=== PATIENT | male | born 1955 | race Hispanic/Latino ===

== ENCOUNTER 2017-10-14 07:56 | Emergency (ER) | payer OTHER ==
--- NOTE | 2017-10-14 08:11 | EDPHYS ---
Physician Documentation [facility] Name: George Gold Age: 61 yrs Sex: Male : 1955 Arrival Date: 10/14/2017 Time: 07:59 Bed 20 Private MD: Unknown, Unknown ED Physician Duran Garza HPI: 10/14 08:11 This 61 yrs old Male presents to ER via Unassigned with complaints of Ear Pain.jr8 08:11 The patient presents with pain. The complaints affect the left ear. Onset: The jr8 symptoms/episode began/occurred gradually, 2 day(s) ago. Modifying factors: The symptoms are alleviated by nothing, the symptoms are aggravated by touching. Associated signs and symptoms: The patient has no apparent associated signs or symptoms. Severity of symptoms: At their worst the symptoms were moderate in the emergency department the symptoms are unchanged. The patient has experienced similar episodes in the past, a few times. The patient has not recently seen a physician. Has tympanostomy in left ear. Has infections occasionally. Stated that it is hurting and believes it is infected. Cannot get into ENT until October . Historical: - Allergies: 08:15 NKDA; iw - Home Meds: 08:15 amlodipine 10 mg tab once daily [Active]; gemfibrozil 600 mg Oral tab 1 tab 2 times per iw day [Active]; glipizide 5 mg Oral tr24 2 tabs once daily [Active]; lisinopril 20 mg Oral tab 1 tab once daily [Active]; metformin 500 mg Oral Tb24 1 tab 2 times per day [Active]; zolpidem 10 mg Oral tab 1 tab once daily [Active]; - PMHx: 08:15 CVA; Diabetes - NIDDM; Hypertension; iw - PSHx: 08:15 None; iw - Immunization history:: Adult Immunizations. - Social history:: Smoking status: unknown. - Ebola Screening: : Patient negative for fever greater than or equal to 101.5 degrees Fahrenheit, and additional compatible Ebola Virus Disease symptoms Patient denies exposure to infectious person Patient denies travel to an Ebola-affected area in the 21 days before illness onset No symptoms or risks identified at this time. ROS: 08:11 Eyes: Negative for injury, pain, redness, and discharge, Neck: Negative for injury, jr8 pain, and swelling, Cardiovascular: Negative for chest pain, palpitations, and edema, Respiratory: Negative for shortness of breath, cough, wheezing, and pleuritic chest pain, Abdomen/GI: Negative for abdominal pain, nausea, vomiting, diarrhea, and constipation, Back: Negative for injury and pain, MS/Extremity: Negative for injury and deformity, Skin: Negative for injury, rash, and discoloration, Neuro: Negative for headache, weakness, numbness, tingling, and seizure. 08:11 ENT: Positive for ear pain, Negative for drainage from ear(s), hearing loss, tinnitus, rhinorrhea, sinus congestion, sinus pain, sore throat, dental pain, difficulty swallowing, difficulty handling secretions, hoarseness. Exam: 08:11 Eyes: Pupils equal round and reactive to light, extra-ocular motions intact. Lids and jr8 lashes normal. Conjunctiva and sclera are non-icteric and not injected. Cornea within normal limits. Periorbital areas with no swelling, redness, or edema. Neck: Trachea midline, no thyromegaly or masses palpated, and no cervical lymphadenopathy. Supple, full range of motion without nuchal rigidity, or vertebral point tenderness. No Meningismus. Cardiovascular: Regular rate and rhythm with a normal S1 and S2. No gallops, murmurs, or rubs. Normal PMI, no JVD. No pulse deficits. Respiratory: Lungs have equal breath sounds bilaterally, clear to auscultation and percussion. No rales, rhonchi or wheezes noted. No increased work of breathing, no retractions or nasal flaring. Skin: Warm, dry with normal turgor. Normal color with no rashes, no lesions, and no evidence of cellulitis. MS/ Extremity: Pulses equal, no cyanosis. Neurovascular intact. Full, normal range of motion. Neuro: Awake and alert, GCS 15, oriented to person, place, time, and situation. Cranial nerves II-XII grossly intact. Motor strength 5/5 in all extremities. Sensory grossly intact. Cerebellar exam normal. Normal gait. 08:11 ENT: External ear(s): are unremarkable, Ear canal(s): are normal, TM's: bulging, on the left, erythema, that is moderate, on the left, loss of bony landmarks, on the left, PE tubes visualized. PE tubes patent, intact, draining in ear canal Nose: is normal, Mouth: is normal, Posterior pharynx: is normal. Vital Signs: 08:12 BP 170 / 99; Pulse 67; Resp 16; Temp 98.2; Pulse Ox 98% on R/A; Pain 8/10; iw MDM: 08:03 Patient medically screened. jr8 08:09 Data reviewed: vital signs, nurses notes, and as a result, I will discharge patient. jr8 Data interpreted: Pulse oximetry: on room air is 100 %. Interpretation: normal. Counseling: I had a detailed discussion with the patient and/or guardian regarding: the historical points, exam findings, and any diagnostic results supporting the discharge/admit diagnosis, the need for outpatient follow up, an ENT specialist, to return to the emergency department if symptoms worsen or persist or if there are any questions or concerns that arise at home. Administered Medications: 08:16 Drug: Cortisporin Drops 4 drops Route: Otic; Site: left ear; tw2 Disposition: 12:39 Co-signature as Attending Physician, Duran Garza MD. rn Disposition: 10/14/17 08:10 Discharged to Home. Impression: Acute suppurative otitis media. - Condition is Stable. - Discharge Instructions: Otitis Media, Adult. - Prescriptions for Cortisporin 3.5- 10,000-1 mg/mL-unit/mL-% Otic solution - instill 4 drop by OTIC route 4 times per day for 7 days; 1 bottle. Augmentin 875- 125 mg Oral Tablet - take 1 tablet by ORAL route every 12 hours for 10 days; 20 tablet. - Medication Reconciliation Form, Thank You Letter, Antibiotic Education, Prescription Opioid Use form. - Follow up: Anayeli Barbour MD; When: 1 week; Reason: Recheck today's complaints, Continuance of care, Re-evaluation by your physician. - Problem is new. - Symptoms have improved. Signatures: Radha Hyde RN RN Duran Thompson MD MD rn Roszak, Josh, PA PA jr8 Jacqueline Zuniga RN RN tw2 Corrections: (The following items were deleted from the chart) 08:22 08:10 10/14/2017 08:10 Discharged to Home. Impression: Acute suppurative otitis media. tw2 Condition is Stable. Forms are Medication Reconciliation Form, Thank You Letter, Antibiotic Education, Prescription Opioid Use. Follow up: Anayeli Barbour; When: 1 week; Reason: Recheck today's complaints, Continuance of care, Re-evaluation by your physician. Problem is new. Symptoms have improved. jr8
--- NOTE | 2017-10-14 08:11 | ER ---
Nurse's Notes [facility] Name: George Gold Age: 61 yrs Sex: Male : 1955 Arrival Date: 10/14/2017 Time: 07:59 Bed 20 Private MD: Unknown, Unknown Diagnosis: Acute suppurative otitis media Presentation: 10/14 08:10 Presenting complaint: Patient states: has tube in left ear, roche snot remember why it iw was placed, but has had multiple ear infections in past, last on antibiotics a year ago, has had pain in the ear for 2 weeks and last night he couldn't sleep. Transition of care: patient was not received from another setting of care. Onset of symptoms was September 30, 2017. Risk Assessment: Do you want to hurt yourself or someone else? Patient reports no desire to harm self or others. Initial Sepsis Screen: Does the patient meet any 2 criteria? No. Patient's initial sepsis screen is negative. Does the patient have a suspected source of infection? No. Patient's initial sepsis screen is negative. Care prior to arrival: None. 08:10 Method Of Arrival: Ambulatory iw 08:10 Acuity: KEHINDE 5 iw Historical: - Allergies: 08:15 NKDA; iw - Home Meds: 08:15 amlodipine 10 mg tab once daily [Active]; gemfibrozil 600 mg Oral tab 1 tab 2 times per iw day [Active]; glipizide 5 mg Oral tr24 2 tabs once daily [Active]; lisinopril 20 mg Oral tab 1 tab once daily [Active]; metformin 500 mg Oral Tb24 1 tab 2 times per day [Active]; zolpidem 10 mg Oral tab 1 tab once daily [Active]; - PMHx: 08:15 CVA; Diabetes - NIDDM; Hypertension; iw - PSHx: 08:15 None; iw - Immunization history:: Adult Immunizations. - Social history:: Smoking status: unknown. - Ebola Screening: : Patient negative for fever greater than or equal to 101.5 degrees Fahrenheit, and additional compatible Ebola Virus Disease symptoms Patient denies exposure to infectious person Patient denies travel to an Ebola-affected area in the 21 days before illness onset No symptoms or risks identified at this time. Screenin:09 Abuse screen: Denies threats or abuse. Nutritional screening: No deficits noted. tw2 Tuberculosis screening: No symptoms or risk factors identified. Fall Risk None identified. Assessment: 08:09 General: Appears in no apparent distress. well groomed, Behavior is calm, cooperative, tw2 appropriate for age. Pain:. Neuro: Level of Consciousness is awake, alert, obeys commands, Oriented to person, place, time, situation. Cardiovascular: Denies chest pain, shortness of breath, Capillary refill < 3 seconds Patient's skin is warm and dry. Respiratory: Airway is patent Respiratory effort is even, unlabored, Respiratory pattern is regular, symmetrical. GI: No signs and/or symptoms were reported involving the gastrointestinal system. : No signs and/or symptoms were reported regarding the genitourinary system. Derm: No signs and/or symptoms reported regarding the dermatologic system. Skin is intact, is healthy with good turgor, Skin temperature is warm. Musculoskeletal: Circulation, motion, and sensation intact. Range of motion: intact in all extremities. 08:21 Pain: Complains of pain in left ear. EENT: Reports pain in left ear. tw2 Vital Signs: 08:12 BP 170 / 99; Pulse 67; Resp 16; Temp 98.2; Pulse Ox 98% on R/A; Pain 8/10; iw ED Course: 07:59 Patient arrived in ED. mr 07:59 Unknown, Unknown is Private Physician. mr 08:03 Jose Weinberg PA is PHCP. jr8 08:03 Duran Garza MD is Attending Physician. jr8 08:04 Jacqueline Zuniga, DIANA is Primary Nurse. tw2 08:09 Bed in low position. Call light in reach. Pulse ox on. NIBP on. tw2 08:10 Anayeli Barbour MD is Referral Physician. jr8 08:12 Triage completed. iw 08:12 Arm band placed on. iw 08:22 No provider procedures requiring assistance completed. Patient did not have IV access tw2 during this emergency room visit. Administered Medications: 08:16 Drug: Cortisporin Drops 4 drops Route: Otic; Site: left ear; tw2 Outcome: 08:10 Discharge ordered by . jr8 08:22 Discharged to home ambulatory. tw2 08:22 Condition: stable 08:22 Discharge instructions given to patient, Instructed on discharge instructions, follow up and referral plans. medication usage, Demonstrated understanding of instructions, follow-up care, medications, Prescriptions given X 2. 08:22 Patient left the ED. tw2 Signatures: Bailey Sumner Irene RN RN Jose Weinberg PA PA jr8 Jacqueline Zuniga RN RN tw2
[2017-10-14] MEDS ORDERED: NEOMY/POLY/HC 1% OTIC DROPS ONE (08:17)
== END 2017-10-14 08:22 | disposition home or self-care (01) ==
LOC: ER 07:56
DX: H66.002 Acute suppurative otitis media without spontaneous rupture of ear drum, left ear (principal); I10 Essential (primary) hypertension; E11.9 Type 2 diabetes mellitus without complications
CPT/HCPCS: 99283

== ENCOUNTER 2018-01-21 16:38 | Emergency (ER) | payer OTHER ==
[2018-01-21] MEDS ORDERED: NA CHLORIDE 0.9% 500 ML ONE (17:39)
--- NOTE | 2018-01-21 17:43 | RAD REPORT ---
EXAM DESCRIPTION: RAD - Chest Single View - 01/21/2018 5:23 pm CLINICAL HISTORY: Hypertension, cough COMPARISON: April 2006 TECHNIQUE: AP portable chest image was obtained 1715 hour . FINDINGS: Is lung markings are accentuated by shallow inspiration. No peripheral mass or consolidati on. Heart and vasculature are normal. No measurable pleural effusion and no pneumothorax. No acute otto ny abnormality seen. No acute aortic findings suspected. IMPRESSION: No acute cardiopulmonary process.
[2018-01-21 17:53] LABS: Protime INR 1.17
[2018-01-21 17:54] LABS: Urine Blood NEGATIVE (NEG); Urine Glucose TRACE (NEG); Urine Protein NEGATIVE (NEG); Urine Specific Gravity >1.030 (1.005-1.030); Urine pH 5.5 (5.0-7.0)
[2018-01-21 17:55] LABS: Urine Bacteria <20 /HPF (NONE SEEN); Urine Culture Reflex Order NOT NEEDED; Urine RBC <5 /HPF (NONE SEEN)
[2018-01-21 17:57] LABS: Absolute Lymphocytes (CBC) 2.5 K/uL (0.7-4.9); Absolute Monocytes 0.7 K/uL (0.1-1.3); Absolute Neutrophil 6.8 K/uL (1.8-8.0); Basophils % 0.6 % (0-1.3); Eosinophils % 0.9 % (0-4.4); Hematocrit 44.8 % (39.6-49.0); Lymphocytes % 24.7 % (15.3-44.8); MCH 30.3 pg (27.0-35.0); MCV 87.5 fL (80-100); MPV 9.8 fL (7.6-11.3); Monocytes % 6.9 % (3.3-12.3); RBC Red Blood Cell Count 5.12 M/uL (4.33-5.43)
[2018-01-21 18:05] LABS: ALT/SGPT 28 U/L (12-78); AST/SGOT 17 U/L (15-37); Albumin 3.8 g/dL (3.4-5.0); Alkaline Phosphatase 80 U/L (45-117); BUN Blood Urea Nitrogen 15 mg/dL (7-18); Bicarbonate 27 mmol/L (21-32); Bilirubin Direct 0.2 mg/dL (0-0.2); Bilirubin Total 0.5 mg/dL (0.2-1.0); Glucose Level 205 mg/dL (74-106); Magnesium 1.9 mg/dL (1.8-2.4); NT PRO-BNP 79 pg/mL (<125); Potassium 3.7 mmol/L (3.5-5.1); Protein, Total 7.4 g/dL (6.4-8.2); Sodium Level 138 mmol/L (136-145)
--- NOTE | 2018-01-21 19:07 | ER ---
Nurse's Notes [facility] Name: George Gold Age: 62 yrs Sex: Male : 1955 Arrival Date: 01/21/2018 Time: 16:44 Bed 16 Private MD: Diagnosis: Person with feared health complaint in whom no diagnosis is made Presentation: 01/21 16:55 Presenting complaint: Patient states: i have been having blood in my urine for 3 days tw2 now, and my doctor couldn't get me in. Transition of care: patient was not received from another setting of care. Onset of symptoms was January 21, 2018. Risk Assessment: Do you want to hurt yourself or someone else? Patient reports no desire to harm self or others. Initial Sepsis Screen: Does the patient meet any 2 criteria? No. Patient's initial sepsis screen is negative. Does the patient have a suspected source of infection? No. Patient's initial sepsis screen is negative. Care prior to arrival: None. 16:55 Method Of Arrival: Ambulatory tw2 16:55 Acuity: KEHINDE 3 tw2 Triage Assessment: 19:15 General: Appears in no apparent distress. comfortable, Behavior is calm, cooperative, cc3 appropriate for age. Historical: - Allergies: 16:59 NKDA; tw2 - Home Meds: 16:59 amlodipine 10 mg tab once daily [Active]; gemfibrozil 600 mg Oral tab 1 tab 2 times per tw2 day [Active]; glipizide 5 mg Oral tr24 2 tabs once daily [Active]; lisinopril 20 mg oral tab [Active]; metformin 500 mg Oral Tb24 1 tab 2 times per day [Active]; zolpidem 10 mg Oral tab 1 tab once daily [Active]; - PMHx: 16:59 CVA; Diabetes - NIDDM; Hypertension; Hyperlipidemia; tw2 - PSHx: 16:59 None; tw2 - Immunization history:: Adult Immunizations. - Social history:: Smoking status: . - Ebola Screening: : Patient denies travel to an Ebola-affected area in the 21 days before illness onset. Screenin:57 Abuse screen: Denies threats or abuse. Nutritional screening: No deficits noted. tw2 Tuberculosis screening: Fall Risk None identified. Assessment: 17:01 General: Appears in no apparent distress. Pain: Complains of pain in pelvis. Neuro: tw2 Level of Consciousness is awake, alert, obeys commands, Oriented to person, place, time, situation. Cardiovascular: Heart tones S1 S2 Patient's skin is warm and dry. Respiratory: Airway is patent Respiratory effort is even, unlabored, Respiratory pattern is regular, symmetrical, Breath sounds are clear bilaterally. GI: No signs and/or symptoms were reported involving the gastrointestinal system. Abdomen is flat, Bowel sounds present X 4 quads. : Reports burning with urination, pain blood in urine. EENT: No signs and/or symptoms were reported regarding the EENT system. Derm: No signs and/or symptoms reported regarding the dermatologic system. Musculoskeletal: Range of motion: intact in all extremities. 18:24 Reassessment: Patient appears in no apparent distress at this time. No changes from tw2 previously documented assessment. Patient and/or family updated on plan of care and expected duration. Pain level reassessed. Patient is alert, oriented x 3, equal unlabored respirations, skin warm/dry/pink. 19:14 Reassessment: Patient appears in no apparent distress at this time. Patient and/or cc3 family updated on plan of care and expected duration. Pain level reassessed. Patient is alert, oriented x 3, equal unlabored respirations, skin warm/dry/pink. Received this male patient from morning shift DIANA Phillips as a case of blood in urine. With IV cannula gauge 22 at the left ACV with ongoing IV fluid of NS \T\ 75 mL/hr infusing well. 19:40 Reassessment: YOKASTA Stewart discharged the patient home, no prescription given. IV cannula cc3 removed and patient left ER vitally stable and ambulatory with his family. Vital Signs: 16:56 BP 142 / 122; Pulse 81; Resp 17; Temp 98.2(O); Pulse Ox 100% on R/A; Pain 6/10; tw2 17:16 BP 161 / 76; tw2 18:24 BP 161 / 81; Pulse 70; Resp 16; Pulse Ox 95% on R/A; tw2 19:14 BP 163 / 78; Pulse 64; Resp 18 S; Temp 98.0(O); Pulse Ox 100% on R/A; cc3 ED Course: 16:44 Patient arrived in ED. mr 16:55 Jacqueline Zuniga RN is Primary Nurse. tw2 16:56 Triage completed. tw2 16:56 Arm band placed on. tw2 16:57 [facility] Waldron [facility]C [facility]. snw 16:57 Victor M Carranza MD is Attending Physician. snw 16:57 Bed in low position. Call light in reach. Pulse ox on. NIBP on. tw2 17:20 First set of blood cultures drawn by me. jb1 17:24 XRAY Chest (1 view) In Process Unspecified. EDMS 17:33 Initial lab(s) drawn, by me, sent to lab. Inserted saline lock: 22 gauge in left jb1 forearm, using aseptic technique. Blood collected. 17:33 EKG done, by licensed psychiatric technician. reviewed by Pat MORALES. jb1 17:35 Second set of blood cultures drawn by me. jb1 18:09 Bladder scan completed. 38 mls. jb1 18:59 Report given to DIANA Rojo. tw2 19:05 Raul Barnes MD is Referral Physician. snw 19:40 No provider procedures requiring assistance completed. IV discontinued, intact, cc3 bleeding controlled, No redness/swelling at site. Pressure dressing applied. Administered Medications: 17:30 Drug: NS 0.9% 1000 ml Route: IV; Rate: 75 ml/hr; Site: left antecubital; tw2 19:40 Follow up: Response: No adverse reaction; Patient discharged home cc3 Intake: Outcome: 19:07 Discharge ordered by . snw 19:40 Discharged to home ambulatory, with family. cc3 19:40 Condition: stable 19:40 Discharge instructions given to patient, family, Instructed on discharge instructions, follow up and referral plans. Demonstrated understanding of instructions, follow-up care. 19:47 Patient left the ED. cc3 Signatures: Dispatcher [employer] EDMS BrownEnio pickering jb1 Pat Waldron FNP-C FNP-Csnw Eloisa Sumner Jacqueline Stevenson RN RN tw2 Alia Wick cc3 Corrections: (The following items were deleted from the chart) 01/22 02:48 01/21 19:40 Reassessment: YOKASTA Stewart discharged the patient home, no prescription given. cc3 IV cannula removed and patient left ER vitally stable and ambulatory. cc3
--- NOTE | 2018-01-21 19:08 | EDPHYS ---
Physician Documentation [facility] Name: George Gold Age: 62 yrs Sex: Male : 1955 Arrival Date: 01/21/2018 Time: 16:44 Bed 16 Private MD: ED Physician Victor M Carranza HPI: 01/21 18:32 This 62 yrs old Male presents to ER via Ambulatory with complaints of blood in snw urine. 18:32 The patient presents with urinary symptoms, hematuria. Onset: The symptoms/episode snw began/occurred suddenly. Modifying factors: The symptoms are alleviated by nothing. Associated signs and symptoms: Pertinent positives: hematuria, Pertinent negatives: abdominal pain, vomiting. Severity of symptoms: At their worst the symptoms were moderate. The patient has not experienced similar symptoms in the past. It is unknown whether or not the patient has recently seen a physician. Historical: - Allergies: 16:59 NKDA; tw2 - Home Meds: 16:59 amlodipine 10 mg tab once daily [Active]; gemfibrozil 600 mg Oral tab 1 tab 2 times per tw2 day [Active]; glipizide 5 mg Oral tr24 2 tabs once daily [Active]; lisinopril 20 mg oral tab [Active]; metformin 500 mg Oral Tb24 1 tab 2 times per day [Active]; zolpidem 10 mg Oral tab 1 tab once daily [Active]; - PMHx: 16:59 CVA; Diabetes - NIDDM; Hypertension; Hyperlipidemia; tw2 - PSHx: 16:59 None; tw2 - Immunization history:: Adult Immunizations. - Social history:: Smoking status: . - Ebola Screening: : Patient denies travel to an Ebola-affected area in the 21 days before illness onset. ROS: 18:31 Constitutional: Negative for fever, chills, and weight loss, Eyes: Negative for injury, snw pain, redness, and discharge, ENT: Negative for injury, pain, and discharge, Neck: Negative for injury, pain, and swelling, Cardiovascular: Negative for chest pain, palpitations, and edema, Respiratory: Negative for shortness of breath, cough, wheezing, and pleuritic chest pain, Abdomen/GI: Negative for abdominal pain, nausea, vomiting, diarrhea, and constipation, Back: Negative for injury and pain, MS/Extremity: Negative for injury and deformity, Skin: Negative for injury, rash, and discoloration, Neuro: Negative for headache, weakness, numbness, tingling, and seizure. 18:31 : Positive for hematuria. Exam: 18:31 Constitutional: This is a well developed, well nourished patient who is awake, alert, snw and in no acute distress. Head/Face: Normocephalic, atraumatic. Eyes: Pupils equal round and reactive to light, extra-ocular motions intact. Lids and lashes normal. Conjunctiva and sclera are non-icteric and not injected. Cornea within normal limits. Periorbital areas with no swelling, redness, or edema. ENT: Nares patent. No nasal discharge, no septal abnormalities noted. Tympanic membranes are normal and external auditory canals are clear. Oropharynx with no redness, swelling, or masses, exudates, or evidence of obstruction, uvula midline. Mucous membranes moist. Neck: Trachea midline, no thyromegaly or masses palpated, and no cervical lymphadenopathy. Supple, full range of motion without nuchal rigidity, or vertebral point tenderness. No Meningismus. Chest/axilla: Normal chest wall appearance and motion. Nontender with no deformity. No lesions are appreciated. Cardiovascular: Regular rate and rhythm with a normal S1 and S2. No gallops, murmurs, or rubs. Normal PMI, no JVD. No pulse deficits. Respiratory: Lungs have equal breath sounds bilaterally, clear to auscultation and percussion. No rales, rhonchi or wheezes noted. No increased work of breathing, no retractions or nasal flaring. Abdomen/GI: Soft, non-tender, with normal bowel sounds. No distension or tympany. No guarding or rebound. No evidence of tenderness throughout. Back: No spinal tenderness. No costovertebral tenderness. Full range of motion. Skin: Warm, dry with normal turgor. Normal color with no rashes, no lesions, and no evidence of cellulitis. MS/ Extremity: Pulses equal, no cyanosis. Neurovascular intact. Full, normal range of motion. Neuro: Awake and alert, GCS 15, oriented to person, place, time, and situation. Cranial nerves II-XII grossly intact. Motor strength 5/5 in all extremities. Sensory grossly intact. Cerebellar exam normal. Normal gait. Psych: Awake, alert, with orientation to person, place and time. Behavior, mood, and affect are within normal limits. Vital Signs: 16:56 BP 142 / 122; Pulse 81; Resp 17; Temp 98.2(O); Pulse Ox 100% on R/A; Pain 6/10; tw2 17:16 BP 161 / 76; tw2 18:24 BP 161 / 81; Pulse 70; Resp 16; Pulse Ox 95% on R/A; tw2 19:14 BP 163 / 78; Pulse 64; Resp 18 S; Temp 98.0(O); Pulse Ox 100% on R/A; cc3 MDM: 16:57 Patient medically screened. snw 19:10 Data reviewed: vital signs, nurses notes. Data interpreted: Pulse oximetry: on room air snw is 95 %. Interpretation: acceptable. Counseling: I had a detailed discussion with the patient and/or guardian regarding: the historical points, exam findings, and any diagnostic results supporting the discharge/admit diagnosis, the presence of at least one elevated blood pressure reading (>120/80) during this emergency department visit, lab results, radiology results, the need for outpatient follow up, to return to the emergency department if symptoms worsen or persist or if there are any questions or concerns that arise at home. Special discussion: Based on the history and exam findings, there is no indication for further emergent testing or inpatient evaluation. I discussed with the patient/guardian the need to see the primary care provider for further evaluation of the symptoms. I discussed with the patient/guardian the need to see the urologist for further evaluation of the symptoms. 01/21 16:59 Order name: Basic Metabolic Panel [facility] 01/21 16:59 Order name: CBC with Diff snw 01/21 16:59 Order name: LFT's snw 01/21 16:59 Order name: Magnesium snw 01/21 16:59 Order name: NT PRO-BNP snw 01/21 16:59 Order name: PT-INR; Complete Time: 18:09 snw 01/21 16:59 Order name: Blood Culture Adult (2) [facility] 01/21 16:59 Order name: Urine Culture [facility] 01/21 16:59 Order name: Urine Microscopic Only; Complete Time: 18:09 snw 01/21 17:00 Order name: Basic Metabolic Panel; Complete Time: 18:09 EDMS 01/21 17:00 Order name: CBC with Automated Diff; Complete Time: 18:09 EDMS 01/21 17:00 Order name: Liver (Hepatic) Function; Complete Time: 18:09 EDMS 01/21 17:00 Order name: Magnesium; Complete Time: 18:09 EDMS 01/21 17:00 Order name: NT PRO-BNP; Complete Time: 18:09 EDMS 01/21 16:59 Order name: XRAY Chest (1 view); Complete Time: 17:47 snw 01/21 16:59 Order name: Cardiac monitoring; Complete Time: 17:15 snw 01/21 16:59 Order name: IV Saline Lock; Complete Time: 17:34 snw 01/21 16:59 Order name: Labs collected and sent; Complete Time: 17:34 snw 01/21 16:59 Order name: O2 Per Protocol; Complete Time: 17:16 snw 01/21 16:59 Order name: O2 Sat Monitoring; Complete Time: 17:16 snw 01/21 16:59 Order name: Bladder Scanner; Complete Time: 18:10 snw 01/21 17:20 Order name: Urine Dipstick--Ancillary (enter results); Complete Time: 18:09 ms 01/21 17:42 Order name: EKG Electrocardiogram EDMS Administered Medications: 17:30 Drug: NS 0.9% 1000 ml Route: IV; Rate: 75 ml/hr; Site: left antecubital; tw2 19:40 Follow up: Response: No adverse reaction; Patient discharged home cc3 Disposition: 01/22 07:44 Co-signature as Attending Physician, Victor M Carranza MD I agree with the assessment and kdr plan of care. Disposition: 01/21/18 19:07 Discharged to Home. Impression: Person with feared health complaint in whom no diagnosis is made. - Condition is Stable. - Discharge Instructions: Hematuria, Adult, Hypertension, Managing Your Hypertension. - Medication Reconciliation Form, Thank You Letter, Antibiotic Education, Prescription Opioid Use form. - Follow up: Private Physician; When: 2 - 3 days; Reason: Recheck today's complaints, Continuance of care, Re-evaluation by your physician. Follow up: Raul Barnes MD; When: 1 week; Reason: Recheck today's complaints, Continuance of care, Re-evaluation by your physician. Signatures: Dispatcher [employer] Victor M Guardado MD MD kdr Pat Waldron, TAX CONSULTANT-C TAX CONSULTANT-Jovannyw Jacqueline Zuniga RN RN tw2 Alia Wick cc3 Corrections: (The following items were deleted from the chart) 01/21 19:47 19:07 01/21/2018 19:07 Discharged to Home. Impression: Person with feared health cc3 complaint in whom no diagnosis is made. Condition is Stable. Forms are Medication Reconciliation Form, Thank You Letter, Antibiotic Education, Prescription Opioid Use. Follow up: Private Physician; When: 2 - 3 days; Reason: Recheck today's complaints, Continuance of care, Re-evaluation by your physician. Follow up: Raul Barnes; When: 1 week; Reason: Recheck today's complaints, Continuance of care, Re-evaluation by your physician. snw
--- NOTE | 2018-01-22 07:19 | EKG ---
Test Date: 2018-01-21 Test Time: 17:33:02 [employer]: JUNITO MEASUREMENT RESULTS: Intervals: Rate: 78 [place]: 144 QRSD: 92 QT: 400 QTc: 456 [place]: P: 54 [place]: 144 QRS: 23 T: 83 INTERPRETIVE STATEMENTS: Normal sinus rhythm Normal ECG Compared to ECG 09/30/2015 14:32:18 No significant changes Electronically Signed On 01-22-18 07:18:24 SECURITY COMPLIANCE ENGINEER by Armen Currie
== END 2018-01-21 19:47 | disposition home or self-care (01) ==
LOC: ER 16:38
DX: Z71.1 Person with feared health complaint in whom no diagnosis is made (principal); I10 Essential (primary) hypertension; E11.9 Type 2 diabetes mellitus without complications; E78.5 Hyperlipidemia, unspecified
CPT/HCPCS: 36415; 71045; 80048; 80076; 81003; 81015; 83735; 83880; 85025; 85610; 87040; 87086; 87088; 93005; 99284

== ENCOUNTER 2021-09-29 19:56 | Emergency (ER) | payer OTHER ==
--- OUTSIDE RECORDS SUMMARY | 2021-09-29 19:59 | XMS REPORT | Continuity of Care Document ---
:1955 Author Organization [facility] t Address [facility] [place] [address] [place] [id number] Care Team Providers Name Role Phone Miller_S_AH Attending Clinician Unavailable Ailyn-Mbayo_A_AH Attending Clinician Unavailable Miller_S_AH Admitting Clinician Unavailable Ailyn-Mbayo_A_AH Admitting Clinician Unavailable Payers Payer Name Policy Type Policy Number Effective Date Expiration Date S ai [facility] - [id number] 2019 [employer] 00:00:00 (MEDICARE REPLACEMENT/ADVANT AGE - HMO) Problems This patient has no known problems. Allergies, Adverse Reactions, Alerts This patient has no known allergies or adverse reactions. Medications This patient has no known medications. Procedures This patient has no known procedures. Encounters Start End Encounter Admission Attending Care Care Encounter Source Date/Time Date/Time Type Type Clinicians Facility Department ID 2020-08-14 2020-08-14 Outpatient Miller_S_AH VFP VFP [id number] [facility] 04:11:00 04:11:00 [id number] Family Practic e 2019-05-05 2019-05-05 Outpatient Ailyn-Mbayo VFP VFP [id number] [facility] 05:59:00 05:59:00 _A_AH [id number] Family Practic e 2019-05-05 2019-05-05 Outpatient Ailyn-Mbayo VFP VFP [id number] [facility] 05:59:00 05:59:00 _A_AH [id number] Family Practic e 2019-05-05 2019-05-05 Outpatient Ailyn-Mbayo VFP VFP [id number] [facility] 05:59:00 05:59:00 _A_AH [id number] Family Practic e 2019-04-13 2019-04-13 Outpatient Ailyn-Mbayo VFP VFP [id number] [facility] 07:14:00 07:14:00 _A_ [id number] Family Practic e 2018-10-28 2018-10-28 Outpatient [facility] [id number] [facility] 06:35:00 06:35:00 Results This patient has no known results.
[2021-09-29] MEDS ORDERED: PEN G BENZ LA 1.2MU/2ML SYRINGE IM ONE (20:58)
[2021-09-29] MEDS ORDERED: HYDROCODONE/APAP 10/325 TAB ONE (22:01)
--- NOTE | 2021-09-29 22:07 | EDPHYS ---
Physician Documentation [facility] Name: George Gold Age: 65 yrs Sex: Male : 1955 Arrival Date: 09/29/2021 Time: 20:02 Bed 8 Private MD: ED Physician Renzo Lea HPI: 09/29 20:49 This 65 yrs old Male presents to ER via Ambulatory with complaints of snw Toothache, Jaw Pain. 20:49 The patient presents with pain, swelling. The problem is located in the left mandible. snw Onset: The symptoms/episode began/occurred suddenly, 2 day(s) ago, and became persistent. Duration: The symptoms are continuous. Associated signs and symptoms: Pertinent positives: chills, pain, swelling. Severity of symptoms: At their worst the symptoms were moderate. It is unknown whether or not the patient has had similar symptoms in the past. The patient has not recently seen a physician. has not checked blood sugar. Historical: - Allergies: 20:30 NKDA; kl - Home Meds: 20:30 amlodipine 10 mg tab once daily [Active]; gemfibrozil 600 mg Oral tab 1 tab 2 times per kl day [Active]; glipizide 5 mg Oral tr24 2 tabs once daily [Active]; lisinopril 20 mg Oral tab [Active]; metformin 500 mg Oral Tb24 1 tab 2 times per day [Active]; zolpidem 10 mg Oral tab 1 tab once daily [Active]; - PMHx: 20:30 CVA; Diabetes - NIDDM; Hyperlipidemia; Hypertension; kl - PSHx: 20:30 None; kl - Immunization history:: Adult Immunizations up to date. - Social history:: Smoking status: Patient reports the use of cigarette tobacco products, smokes one-half pack cigarettes per day. ROS: 20:47 Eyes: Negative for injury, pain, redness, and discharge. snw 20:47 Neck: Negative for injury, pain, and swelling, Cardiovascular: Negative for chest pain, palpitations, and edema. 20:47 Abdomen/GI: Negative for abdominal pain, nausea, vomiting, diarrhea, and constipation, Back: Negative for injury and pain, : Negative for injury, bleeding, discharge, and swelling, MS/Extremity: Negative for injury and deformity, Skin: Negative for injury, rash, and discoloration, Neuro: Negative for headache, weakness, numbness, tingling, and seizure, Psych: Negative for depression, anxiety, suicide ideation, homicidal ideation, and hallucinations. 20:47 Constitutional: Positive for body aches, chills, malaise. 20:47 ENT: Positive for drainage from ear(s), nasal discharge, Teeth pain 20:47 Respiratory: Positive for cough. Exam: 20:46 Head/Face: Normocephalic, atraumatic. Eyes: Pupils equal round and reactive to light, snw extra-ocular motions intact. Lids and lashes normal. Conjunctiva and sclera are non-icteric and not injected. Cornea within normal limits. Periorbital areas with no swelling, redness, or edema. 20:46 Neck: Trachea midline, no thyromegaly or masses palpated, and no cervical lymphadenopathy. Supple, full range of motion without nuchal rigidity, or vertebral point tenderness. No Meningismus. Chest/axilla: Normal chest wall appearance and motion. Nontender with no deformity. No lesions are appreciated. Cardiovascular: Regular rate and rhythm with a normal S1 and S2. No gallops, or rubs. + murmur. Normal PMI, no JVD. No pulse deficits. Respiratory: Lungs have equal breath sounds bilaterally, clear to auscultation and percussion. No rales, rhonchi or wheezes noted. No increased work of breathing, no retractions or nasal flaring. Abdomen/GI: Soft, non-tender, with normal bowel sounds. No distension or tympany. No guarding or rebound. No evidence of tenderness throughout. Back: No spinal tenderness. No costovertebral tenderness. Full range of motion. Skin: Warm, dry with normal turgor. Normal color with no rashes, no lesions, and no evidence of cellulitis. MS/ Extremity: Pulses equal, no cyanosis. Neurovascular intact. Full, normal range of motion. Neuro: Awake and alert, GCS 15, oriented to person, place, time, and situation. Cranial nerves II-XII grossly intact. Motor strength 5/5 in all extremities. Sensory grossly intact. Cerebellar exam normal. Normal gait. Psych: Awake, alert, with orientation to person, place and time. Behavior, mood, and affect are within normal limits. 20:46 Constitutional: The patient appears alert, awake, frail. 20:46 ENT: Nose: Nasal mucosa: edematous, Dental exam: dental caries, that is moderate, diffusely, gum swelling, that is moderate, specifically in the lower left first molar (#19). Vital Signs: 20:27 BP 178 / 73; Pulse 72; Resp 16; Temp 97.7(TE); Pulse Ox 97% ; Weight 67.13 kg (R); kl Height 5 ft. 3 in. (160.02 cm); Pain 7/10; 21:46 BP 169 / 86; Pulse 65; Resp 17; Pulse Ox 99% on R/A; ll3 20:27 Body Mass Index 26.22 (67.13 kg, 160.02 cm) kl MDM: 20:40 Patient medically screened. snw 20:48 Data reviewed: vital signs, nurses notes. Data interpreted: Pulse oximetry: on room air snw is 97 %. Interpretation: normal. Counseling: I had a detailed discussion with the patient and/or guardian regarding: the historical points, exam findings, and any diagnostic results supporting the discharge/admit diagnosis, the presence of at least one elevated blood pressure reading (>120/80) during this emergency department visit, lab results, the need for outpatient follow up, for definitive care. ED course: sees Dr. Rausch. 22:03 Response to treatment: the patient's symptoms have mildly improved after treatment. snw Special discussion: I discussed in detail with the patient the higher chance of wound infection based on his presenting history. Based on the history and exam findings, there is no indication for further emergent testing or inpatient evaluation. I discussed with the patient/guardian the need to see a dentist for further evaluation of the symptoms. I discussed with the patient/guardian the need to see the primary care provider for further evaluation of the symptoms. 09/29 20:46 Order name: SARS-COV-2 RT PCR (Document "Date of Onset" if Symptomatic); Complete Time: snw 22:02 09/29 21:15 Order name: Glucose, Ancillary Testing; Complete Time: 21:33 EDMS 09/29 20:46 Order name: FSBS; Complete Time: 21:04 snw Administered Medications: 20:59 Drug: Bicillin L-A (penicillin G Benzathine) 1.2 million units Route: IM; Site: right kl gluteus; 21:47 Follow up: Response: No adverse reaction 21:57 Drug: [place] (HYDROcodone-acetaminophen) 10 mg-325 mg 1 tabs Route: PO; ll3 22:22 Follow up: Response: No adverse reaction kl Point of Care Testing: Blood Glucose: 21:05 Blood Glucose: 226 mg/dL; Ranges: Critical Glucose Levels:Adult <50 mg/dl or >400 mg/dl <40 mg/dl or >180 mg/dl Disposition: 09/30 07:18 Co-signature as Attending Physician, Renzo Lea MD. [email or web address] Disposition Summary: 09/29/21 22:04 Discharge Ordered Location: Home snw Condition: Stable snw Diagnosis - Dental caries, unspecified snw Followup: snw - With: Private Physician - When: Tomorrow - Reason: Recheck today's complaints, Continuance of care, Re-evaluation by your physician Discharge Instructions: - Discharge Summary Sheet snw - Dental Caries, Adult snw - Dental Pain snw Forms: - Medication Reconciliation Form snw - Thank You Letter snw - Antibiotic Education snw - Prescription Opioid Use snw Prescriptions: - chlorhexidine gluconate 0.12 % Mucous Membrane mouthwash - place 15 milliliter by MUCOUS MEMBRANE route 2 times per day after brushing snw teeth, swish in mouth for 30 seconds then spit out; 480 milliliter; Refills: 0, Product Selection Permitted - Tylenol-Codeine #3 300 mg-30 mg Oral - take 1 tablet by ORAL route every 6-8 hours; 14 tablet; Refills: 0, Product snw Selection Permitted Signatures: Dispatcher [employer] Mica Sy, RN RN Pat Og, DEENA-C WELLNESS DIRECTOR-Jovannyw Renzo Lea MD MD [id number] Chin Capellan RN RN 3
--- NOTE | 2021-09-29 22:07 | ER ---
Nurse's Notes [facility] Name: George Gold Age: 65 yrs Sex: Male : 1955 Arrival Date: 09/29/2021 Time: 20:02 Bed 8 Private MD: Diagnosis: Dental caries, unspecified Presentation: 09/29 20:27 Chief complaint: Patient states: left jaw pain since thursday. Coronavirus screen: Vaccine status: Patient reports receiving the 2nd dose of the covid vaccine. Ebola Screen: Patient negative for fever greater than or equal to 101.5 degrees Fahrenheit, and additional compatible Ebola Virus Disease symptoms. Initial Sepsis Screen: Does the patient meet any 2 criteria? No. Patient's initial sepsis screen is negative. Does the patient have a suspected source of infection? No. Patient's initial sepsis screen is negative. Risk Assessment: Do you want to hurt yourself or someone else? Patient reports no desire to harm self or others. Onset of symptoms was September 27, 2021. 20:27 Method Of Arrival: Ambulatory 20:27 Acuity: KEHINDE 3 Triage Assessment: 20:31 General: Appears uncomfortable, well developed, well nourished, Behavior is calm, kl cooperative. Pain: Complains of pain in left jaw, left cheek and left mandible Pain radiates to left ear Pain currently is 7 out of 10 on a pain scale. EENT: slight swelling to left jaw. Reports pain. Neuro: No deficits noted. Montes Agitation-Sedation Scale (RASS): 0 - Alert and Calm. Cardiovascular: No deficits noted. Heart tones S1 S2. Respiratory: No deficits noted. Airway is patent Trachea midline Respiratory effort is even, unlabored, Breath sounds are clear bilaterally. GI: No deficits noted. No signs and/or symptoms were reported involving the gastrointestinal system. : No deficits noted. No signs and/or symptoms were reported regarding the genitourinary system. Derm: No deficits noted. No signs and/or symptoms reported regarding the dermatologic system. Musculoskeletal: No deficits noted. Historical: - Allergies: 20:30 NKDA; kl - Home Meds: 20:30 amlodipine 10 mg tab once daily [Active]; gemfibrozil 600 mg Oral tab 1 tab 2 times per kl day [Active]; glipizide 5 mg Oral tr24 2 tabs once daily [Active]; lisinopril 20 mg Oral tab [Active]; metformin 500 mg Oral Tb24 1 tab 2 times per day [Active]; zolpidem 10 mg Oral tab 1 tab once daily [Active]; - PMHx: 20:30 CVA; Diabetes - NIDDM; Hyperlipidemia; Hypertension; kl - PSHx: 20:30 None; kl - Immunization history:: Adult Immunizations up to date. - Social history:: Smoking status: Patient reports the use of cigarette tobacco products, smokes one-half pack cigarettes per day. Screenin:33 Abuse screen: Denies threats or abuse. Nutritional screening: No deficits noted. kl Tuberculosis screening: No symptoms or risk factors identified. Fall Risk None identified. Assessment: 21:46 Reassessment: No changes from previously documented assessment. Patient and/or family ll3 updated on plan of care and expected duration. Pain level reassessed. Patient is alert, oriented x 3, equal unlabored respirations, skin warm/dry/pink. Vital Signs: 20:27 BP 178 / 73; Pulse 72; Resp 16; Temp 97.7(TE); Pulse Ox 97% ; Weight 67.13 kg (R); kl Height 5 ft. 3 in. (160.02 cm); Pain 7/10; 21:46 BP 169 / 86; Pulse 65; Resp 17; Pulse Ox 99% on R/A; ll3 20:27 Body Mass Index 26.22 (67.13 kg, 160.02 cm) ED Course: 20:02 Patient arrived in ED. bp1 20:27 Pat Lewis FNP-C is PHCP. snw 20:27 Renzo Lea MD is Attending Physician. snw 20:30 Triage completed. kl 21:00 SARS-COV-2 RT PCR (Document "Date of Onset" if Symptomatic) Sent. kl 21:48 No apparent distress. Resting quietly. kl 21:56 Chin Capellan RN is Primary Nurse. ll3 22:21 No provider procedures requiring assistance completed. Patient did not have IV access kl during this emergency room visit. 22:22 Arm band placed on right wrist. kl 22:22 Patient has correct armband on for positive identification. kl Administered Medications: 20:59 Drug: Bicillin L-A (penicillin G Benzathine) 1.2 million units Route: IM; Site: right kl gluteus; 21:47 Follow up: Response: No adverse reaction 21:57 Drug: [place] (HYDROcodone-acetaminophen) 10 mg-325 mg 1 tabs Route: PO; ll3 22:22 Follow up: Response: No adverse reaction Medication: 22:22 VIS not applicable for this client. Point of Care Testing: Blood Glucose: 21:05 Blood Glucose: 226 mg/dL; Ranges: Outcome: 22:04 Discharge ordered by MD. moreira 22:21 Discharged to home ambulatory, with family. 22:21 Condition: good 22:21 Discharge instructions given to patient, Instructed on discharge instructions, follow up and referral plans. medication usage, Demonstrated understanding of instructions, follow-up care, medications. 22:22 Patient left the ED. Signatures: Mica Linn, RN RN Pat Og, PRIMARY SPECIAL EDUCATION TEACHER-C PRIMARY SPECIAL EDUCATION TEACHER-Csnw Parris Blancas Lynsea RN DIANA ll3
[2021-09-29 23:02] VITALS: TEMP 97.7
[2021-09-29 23:04] VITALS: BP 169/86; O2SAT 99
== END 2021-09-29 22:22 | disposition home or self-care (01) ==
LOC: ER 19:56
DX: K02.9 Dental caries, unspecified (principal); R05.9 Cough, unspecified; R53.81 Other malaise; E11.9 Type 2 diabetes mellitus without complications; I10 Essential (primary) hypertension; F17.210 Nicotine dependence, cigarettes, uncomplicated; Z20.822 Contact with and (suspected) exposure to COVID-19
CPT/HCPCS: 82947; U0003; J0561; 96372; 99283

== ENCOUNTER 2024-02-18 06:42 | Emergency (ER) | payer MEDICARE, OTHER ==
[2024-02-18] MEDS ORDERED: LIDOCAINE 4% PATCH ONE (07:49)
[2024-02-18] MEDS ORDERED: KETOROLAC 30 MG/ML INJ ONE (07:49)
[2024-02-18] MEDS ORDERED: ACETAMINOPHEN 500 MG TAB ONE (07:49)
[2024-02-18] MEDS ORDERED: methocarbamoL 500 MG TAB ONE (07:49)
--- NOTE | 2024-02-18 08:23 | RAD REPORT ---
EXAMINATION: XR Lumbar Spine 3 Views CLINICAL INDICATION: Male, 68 years old. [facility] MAIN Low back pain Bed Name: 13 TECHNIQUE: AP, lateral, focused lateral lumbosacral views of the lumbar spine were obtained. COMPARISON: 11/07/2021 FINDINGS: For purposes of this dictation, it is assumed that there are 5 lumbar type vertebral bodies. ALIGNMENT: There is normal alignment of the lumbar spine. BONES: Vertebral bodies are normal in height. No aggressive osseous lesions. Stable multilevel lower lumbar spine degenerative changes with osseous remodeling most pronounced at the L4-5 facet articulations. DISCS: Minimal degrees of spondylolisthesis at the lower lumbar levels. Mild to moderate disc height loss at L4-5 and L5-S1, stable. IMPRESSION: No acute lumbar spine abnormality. Stable multilevel degenerative changes as above.
--- NOTE | 2024-02-18 08:27 | ER ---
Nurse's Notes [facility] Name: George Gold Age: 68 yrs Sex: Male : 1955 Arrival Date: 02/18/2024 Time: 06:42 Bed 13 Private MD: Diagnosis: Low back pain Presentation: 02/17 07:18 Chief complaint: Patient states: fell on Thursday , fell on left side, has pain to left iw lower back. Coronavirus screen: At this time, the client does not indicate any symptoms associated with coronavirus-19. Initial Sepsis Screen: Does the patient meet any 2 criteria? No. Patient's initial sepsis screen is negative. Does the patient have a suspected source of infection? No. Patient's initial sepsis screen is negative. Risk Assessment: Do you want to hurt yourself or someone else? Patient reports no desire to harm self or others. 07:18 Method Of Arrival: Ambulatory iw 07:18 Acuity: KEHINDE 3 iw 08:04 Ebola Screen: No symptoms or risks identified at this time. Onset of symptoms was ph February 18, 2024. Historical: - Allergies: 07:20 NKDA; iw - PMHx: 07:20 CVA; Diabetes - NIDDM; Hyperlipidemia; Hypertension; iw - Immunization history:: Adult Immunizations not up to date. - Infectious Disease History:: Denies. - Social history:: Smoking status: Patient reports the use of cigarette tobacco products. Screenin:03 [facility] ED Fall Risk Assessment (Adult) History of falling in the last 3 months, ph including since admission Yes- single mechanical fall (1 pt) Confusion or Disorientation No (0 pts) Intoxicated or Sedated No (0 pts) Impaired Gait No (0 pts) Mobility Assist Device Used No (0 pt) Altered Elimination No (0 pt) Score/Fall Risk Level 0 - 2 = Low Risk Oriented to surroundings, Maintained a safe environment, Hourly rounding (assess needs \T\ fall precautionary measures) done. Abuse screen: Denies threats or abuse. Denies injuries from another. Nutritional screening: No deficits noted. Tuberculosis screening: No symptoms or risk factors identified. Assessment: 08:03 General: Appears in no apparent distress. uncomfortable, well groomed, Behavior is ph calm, cooperative, appropriate for age. Pain: Complains of pain in left low back and left mid back. Neuro: Level of Consciousness is awake, alert, obeys commands, Oriented to person, place, time, situation. Cardiovascular: Capillary refill < 3 seconds in bilateral fingers Patient's skin is warm and dry. Respiratory: Airway is patent Respiratory effort is even, unlabored. Derm: Skin is pink, warm \T\ dry. Musculoskeletal: Circulation, motion, and sensation intact. Range of motion: intact in all extremities. Vital Signs: 07:20 BP 163 / 79; Pulse 70; Resp 16; Temp 98.1; Pulse Ox 99% on R/A; Weight 65.77 kg; Height iw 5 ft. 2 in. ; Pain 9/10; 08:49 BP 152 / 78; Pulse 67; Resp 18; Temp 97.4; Pulse Ox 100% on R/A; ph 07:20 Body Mass Index 26.52 (65.77 kg, 157.48 cm) iw 07:20 Pain Scale: Adult iw ED Course: 06:46 Patient arrived in ED. gm2 07:01 Kushal Sheikh MD is Attending Physician. ec2 07:14 Елена Recinos, DIANA is Primary Nurse. ph 07:18 Triage completed. iw 07:21 Arm band placed on. iw 07:58 Lumbar Spine (3 Views) XRAY In Process Unspecified. EDMS 08:04 Patient has correct armband on for positive identification. Bed in low position. Call ph light in reach. Side rails up X 1. Pulse ox on. NIBP on. Door closed. Noise minimized. Warm blanket given. Pillow given. 08:48 No provider procedures requiring assistance completed. Patient did not have IV access ph during this emergency room visit. Administered Medications: 08:04 Drug: Lidoderm Topical Patch 5 % (700 mg/patch) 1 patches Topical once; leave on for 12 ph hours; cover most painful area; may cut into smaller pieces Route: Topical; Site: affected area; 08:49 Follow up: Response: No adverse reaction ph 08:04 Drug: Acetaminophen PO 1000 mg PO once Route: PO; ph 08:49 Follow up: Response: No adverse reaction ph 08:04 Drug: Ketorolac IM 30 mg IM once Route: IM; Site: left deltoid; ph 08:49 Follow up: Response: No adverse reaction ph 08:04 Drug: Methocarbamol PO 500 mg PO once Route: PO; ph 08:49 Follow up: Response: No adverse reaction ph Medication: 08:04 VIS not applicable for this client. ph Outcome: 08:26 Discharge ordered by MD. win 08:48 Discharged to home ambulatory, with significant other, ph 08:48 Condition: good 08:48 Discharge instructions given to patient, significant other, Instructed on discharge instructions, follow up and referral plans. medication usage, Demonstrated understanding of instructions, follow-up care, medications, Prescriptions given X 1, 08:50 Patient left the ED. ph Signatures: Dispatcher [employer] Radha Jordan RN RN Елена Recinos RN RN Aguilar, MD MD senthil [email or web address] Elma Daniels 2
--- NOTE | 2024-02-18 08:27 | EDPHYS ---
Physician Documentation [facility] Name: George Gold Age: 68 yrs Sex: Male : 1955 Arrival Date: 02/18/2024 Time: 06:42 Bed 13 Private MD: ED Physician Kushal Sheikh HPI: 02/17 07:26 This 68 yrs old Male presents to ER via Ambulatory with complaints of Low Back ec2 Pain. 07:26 Patient arrives for evaluation of left lateral low back pain. Had a ground-level fall 2 ec2 days ago. Patient reports has been having some pain with movement. Has taken Tylenol with some alleviation of symptoms. Reports otherwise no other concerns. No red flag symptoms.. Historical: - Allergies: 07:20 NKDA; iw - PMHx: 07:20 CVA; Diabetes - NIDDM; Hyperlipidemia; Hypertension; iw - Immunization history:: Adult Immunizations not up to date. - Infectious Disease History:: Denies. - Social history:: Smoking status: Patient reports the use of cigarette tobacco products. ROS: 07:26 Constitutional: as per hpi ec2 Exam: 07:26 Constitutional: GEN: NAD Head: atraumatic Eyes: EOMI Ears: External ears are ec2 normal. CV: regular rate LUNGS: no respiratory distress ABD: non-distended SKIN: no evidence of rashes MSK: no evidence of trauma no C/C/L-spine deformities, left lateral low back TTP without deformities or crepitus appreciated. Vital Signs: 07:20 BP 163 / 79; Pulse 70; Resp 16; Temp 98.1; Pulse Ox 99% on R/A; Weight 65.77 kg; Height iw 5 ft. 2 in. ; Pain 9/10; 08:49 BP 152 / 78; Pulse 67; Resp 18; Temp 97.4; Pulse Ox 100% on R/A; ph 07:20 Body Mass Index 26.52 (65.77 kg, 157.48 cm) iw 07:20 Pain Scale: Adult iw MDM: 07:11 Medical Screening Exam initiated ec2 07:26 Data reviewed: vital signs, nurses notes. ED course: Patient arrives today for ec2 evaluation of left lateral low back pain. Examination yields MSK findings as above. Will obtain x-ray of the L-spine. Suspect MSK strain/contusion. Doubt fracture. Additionally doubt sciatica given lack of radicular symptoms. Doubt spinal cord pathology given lack of red flag symptoms. Will give patient medication for pain.. 08:26 ED course: X-ray nonactionable. Will discharge home with medications for pain. Suspect ec2 musculoskeletal pain. Return precautions given.. 02/17 07:25 Order name: Lumbar Spine (3 Views) XRAY; Complete Time: 08:26 ec2 Administered Medications: 08:04 Drug: Lidoderm Topical Patch 5 % (700 mg/patch) 1 patches Topical once; leave on for 12 ph hours; cover most painful area; may cut into smaller pieces Route: Topical; Site: affected area; 08:49 Follow up: Response: No adverse reaction ph 08:04 Drug: Acetaminophen PO 1000 mg PO once Route: PO; ph 08:49 Follow up: Response: No adverse reaction ph 08:04 Drug: Ketorolac IM 30 mg IM once Route: IM; Site: left deltoid; ph 08:49 Follow up: Response: No adverse reaction ph 08:04 Drug: Methocarbamol PO 500 mg PO once Route: PO; ph 08:49 Follow up: Response: No adverse reaction ph Disposition Summary: 02/18/24 08:26 Discharge Ordered Notes: Location: Home ec2 Condition: Stable ec2 Diagnosis - Low back pain ec2 Followup: ec2 - With: Private Physician - When: - Reason: Re-evaluation by your physician Discharge Instructions: - Discharge Summary Sheet ec2 - Acute Back Pain, Adult ec2 Forms: - Medication Reconciliation Form ec2 - Antibiotic Education ec2 - Prescription Opioid Use ec2 - Patient Portal Instructions ec2 - Leadership Thank You Letter ec2 Prescriptions: - Cyclobenzaprine 5 mg Oral Tablet - take 1 tablet ORAL route 3 times per day As needed; 15 tablet; Refills: 0, ec2 Product Selection Permitted Signatures: Dispatcher [employer] Radha Jordan RN RN Елена Recinos RN RN Kushal Sheikh MD MD ec2
[2024-02-18 09:46] VITALS: BP 152/78; TEMP 97.4; O2SAT 100
== END 2024-02-18 08:50 | disposition home or self-care (01) ==
LOC: ER 06:42
DX: M54.50 Low back pain, unspecified (principal); W18.30XA Fall on same level, unspecified, initial encounter
CPT/HCPCS: 72100; 96372; 99284; J2003